=== PATIENT | female | born 1980 | race Caucasian/White ===

== ENCOUNTER 2016-11-07 15:12 | Emergency (ER) | payer MEDICARE | END 2016-11-07 16:37 | disposition home or self-care (01) | LOC: ER1 15:12 | DX: M54.5 Low back pain (principal); Z90.49 Acquired absence of other specified parts of digestive tract; Z88.0 Allergy status to penicillin | CPT/HCPCS: 36415; 81001; 84703; 87086; 96372; 99283; J1885 ==